=== PATIENT | female | born 1980 | race Caucasian/White ===

== ENCOUNTER 2023-08-12 04:25 | Day surgery (SDC) | payer OTHER ==
[2023-08-07 16:43] VITALS: BMI 19.5
[2023-08-12] MEDS ORDERED: MIDAZOLAM HCL 2 MG/2 ML SINGLE DOSE VIAL ONE (10:07)
[2023-08-12] MEDS ORDERED: PROPOFOL 20 ML ONE (10:07)
[2023-08-12] MEDS ORDERED: LIDOCAINE HCL/PF 2% SDV 5ML VIAL ONE (10:08)
[2023-08-12] MEDS ORDERED: PROMETHAZINE HCL 25 MG/1 ML VIAL IVPB PRN (10:27)
[2023-08-12] MEDS ORDERED: ONDANSETRON 4 MG/2 ML VIAL IVPUSH PRN (10:27)
[2023-08-12] MEDS ORDERED: oxyCODONE HCL 5 MG TABLET PO PRN (10:27)
[2023-08-12] MEDS ORDERED: LACTATED RINGERS SOLUTION 1,000 ML IV SCH (10:30)
[2023-08-12] MEDS ORDERED: KETOROLAC TROMETHAMINE 30 MG/1 ML VIAL ONE (10:48)
[2023-08-12] MEDS ORDERED: ONDANSETRON 4 MG/2 ML VIAL ONE (10:48)
[2023-08-12] MEDS ORDERED: DEXAMETHASONE SOD PHOSPHATE 4 MG/1 ML VIAL ONE (10:48)
[2023-08-12] MEDS ORDERED: SODIUM CHLORIDE 0.9% P/F 10 ML VIAL IJ ONE (10:51)
[2023-08-12] MEDS ORDERED: ceFAZolin SODIUM 1 GM VIAL IVPB ONE (10:51)
[2023-08-12] MEDS ORDERED: ceFAZolin SODIUM 1 GM VIAL ONE (10:51)
[2023-08-12 12:46] VITALS: RESP 18; TEMP 97.2
[2023-08-12 13:29] VITALS: BP 100/52; PULSE 54
== END 2023-08-12 13:35 | disposition home or self-care (01) ==
LOC: JASU-SURG 04:25
PROVIDERS: ATTEND Obstetrics & Gynecology
PROC: 0UDB8ZX Extraction of Endometrium, Via Natural or Artificial Opening Endoscopic, Diagnostic (ICD-10-PCS; principal; 2023-08-12 10:00)
DX: N92.1 Excessive and frequent menstruation with irregular cycle (principal); N80.00 Endometriosis of the uterus, unspecified; N97.9 Female infertility, unspecified
CPT/HCPCS: 81025; 88305-TC; 94760

== ENCOUNTER 2024-03-16 04:33 | Day surgery (SDC) | payer OTHER ==
[2024-03-11 13:40] VITALS: BMI 19.9
[2024-03-16] MEDS ORDERED: FENTANYL CITRATE/PF 50 MCG/ML VIAL ONE ×2 (11:00→11:14)
[2024-03-16] MEDS ORDERED: PROPOFOL 20 ML ONE (11:00)
[2024-03-16] MEDS ORDERED: MIDAZOLAM HCL 2 MG/2 ML SINGLE DOSE VIAL ONE (11:00)
[2024-03-16] MEDS: ceFAZolin SODIUM 1 GM VIAL IVPB ONE (11:13)
[2024-03-16] MEDS ORDERED: ePHEDrine SULFATE 50 MG/1 ML AMPULE ONE (11:27)
[2024-03-16] MEDS: LACTATED RINGERS SOLUTION 1,000 ML IV SCH (13:00)
[2024-03-16 13:27] VITALS: RESP 18
[2024-03-16 14:21] VITALS: BP 105/42; PULSE 64; TEMP 97.7
== END 2024-03-16 14:21 | disposition home or self-care (01) ==
LOC: JASU-SURG 04:33
PROVIDERS: ATTEND Obstetrics & Gynecology
PROC: 0UDB8ZX Extraction of Endometrium, Via Natural or Artificial Opening Endoscopic, Diagnostic (ICD-10-PCS; principal; 2024-03-16 10:00)
DX: N85.8 Other specified noninflammatory disorders of uterus (principal)
CPT/HCPCS: 88305-TC; 94760

== ENCOUNTER 2024-08-21 04:01 | Day surgery (SDC) | payer OTHER ==
[2024-08-21] MEDS ORDERED: ceFAZolin SODIUM 1 GM VIAL ONE ×2 (07:19→08:53)
[2024-08-21] MEDS ORDERED: ROCURONIUM BROMIDE 50 MG/5 ML SYRINGE ONE (07:58)
[2024-08-21] MEDS ORDERED: PROPOFOL 20 ML ONE ×2 (07:58→14:48)
[2024-08-21] MEDS ORDERED: MIDAZOLAM HCL 2 MG/2 ML SINGLE DOSE VIAL ONE (07:59)
[2024-08-21] MEDS: ceFAZolin SODIUM 1 GM VIAL IVPB ONE (08:54)
[2024-08-21] MEDS: LIDOCAINE 1%/EPI 1:100000 (20 ML MULTI DOSE VIAL) IJ ONE (09:08)
[2024-08-21] MEDS ORDERED: HYDROmorphone HCl 2 MG/ML VIAL ONE (09:12)
[2024-08-21] MEDS ORDERED: ONDANSETRON 4 MG/2 ML VIAL ONE (10:19)
[2024-08-21] MEDS ORDERED: DEXAMETHASONE SOD PHOSPHATE 4 MG/1 ML VIAL ONE (10:19)
[2024-08-21] MEDS ORDERED: SUGAMMADEX SODIUM 200 MG/2 ML VIAL ONE ×2 (10:22→16:03)
[2024-08-21] MEDS ORDERED: oxyCODONE HCL 5 MG TABLET PO PRN (10:48)
[2024-08-21] MEDS ORDERED: ONDANSETRON 4 MG/2 ML VIAL IVPUSH PRN (10:48)
[2024-08-21] MEDS: LACTATED RINGERS SOLUTION 1,000 ML IV SCH (11:03)
[2024-08-21 13:13] VITALS: RESP 16
[2024-08-21] MEDS ORDERED: PHENYLEPHRINE HCL 10 MG/1 ML SINGLE DOSE VIAL ONE (14:52)
[2024-08-21 15:31] VITALS: BP 104/56; PULSE 54; TEMP 97.6
== END 2024-08-21 16:38 | disposition home or self-care (01) ==
LOC: JASU-SURG 04:01
PROVIDERS: ATTEND Obstetrics & Gynecology Gynecologic Oncology
PROC: 0WBH4ZX Excision of Retroperitoneum, Percutaneous Endoscopic Approach, Diagnostic (ICD-10-PCS; 2024-08-21)
PROC: 0TN64ZZ Release Right Ureter, Percutaneous Endoscopic Approach (ICD-10-PCS; 2024-08-21)
PROC: 8E0W4CZ Robotic Assisted Procedure of Trunk Region, Percutaneous Endoscopic Approach (ICD-10-PCS; 2024-08-21)
PROC: 0UT9FZZ Resection of Uterus, Via Natural or Artificial Opening With Percutaneous Endoscopic Assistance (ICD-10-PCS; principal; 2024-08-21 08:00)
PROC: 0UB77ZZ Excision of Bilateral Fallopian Tubes, Via Natural or Artificial Opening (ICD-10-PCS; 2024-08-21 08:00)
PROC: 0UB14ZZ Excision of Left Ovary, Percutaneous Endoscopic Approach (ICD-10-PCS; 2024-08-21 08:00)
DX: D25.9 Leiomyoma of uterus, unspecified (principal); N80.102 Endometriosis of left ovary, unspecified depth; N80.30 Endometriosis of pelvic peritoneum, unspecified; N94.89 Other specified conditions associated with female genital organs and menstrual cycle; N83.8 Other noninflammatory disorders of ovary, fallopian tube and broad ligament; N70.11 Chronic salpingitis
CPT/HCPCS: 50949; 58552; 58662; S2900; 81025; 86850; 86900; 86901; 88108; 88304-TC; 88305-TC; 94760

== ENCOUNTER 2025-04-22 06:01 | Day surgery (SDC) | payer OTHER ==
[2025-04-20 13:05] VITALS: BMI 19.5
[2025-04-22 11:29] VITALS: TEMP 98
[2025-04-22 12:25] VITALS: BP 104/64; PULSE 48; RESP 15
== END 2025-04-22 12:25 | disposition home or self-care (01) ==
LOC: JASU-ENDO 06:01
PROVIDERS: ATTEND Internal Medicine Gastroenterology
PROC: 0DBL8ZX Excision of Transverse Colon, Via Natural or Artificial Opening Endoscopic, Diagnostic (ICD-10-PCS; principal; 2025-04-22 09:15)
DX: Z12.11 Encounter for screening for malignant neoplasm of colon (principal); D12.3 Benign neoplasm of transverse colon; K64.8 Other hemorrhoids; Z80.0 Family history of malignant neoplasm of digestive organs
CPT/HCPCS: 88305-TC